=== PATIENT | female | born 1995 | race African-American/Black ===

== ENCOUNTER 2021-04-06 11:27 | Emergency (ER) | payer OTHER ==
[~2021-04-06] VITALS: Ht 177.8 cm; Wt 70.3 kg
[2021-04-06 13:35] VITALS: BP 142/63
--- NOTE | 2021-04-06 15:32 | EKG ---
[address] [address] ELECTROCARDIOGRAM REPORT Name: KRYSTAL MARRUFO Room #: REG ALEX [place]#: [id number] Admission: 04/06/21 Attend Phys: Discharge: Date of : [birth year] Report #: [id number] [facility] ED Test Date: 2021-04-06 Test Time: 11:35:09 Pat Name: KRYSTAL MARRUFO Department: Room: Gender: F Farm Equipment Operator: SUGAR : 1995 Requested By: Leslie Hung Order Number: [id number] MD: Lon Connor Measurements Intervals [place] Rate: 71 P: 42 MD: 140 QRS: 94 QRSD: 87 T: 22 QT: 363 QTc: 395 Interpretive Statements Sinus rhythm Left atrial enlargement Borderline right axis deviation No previous ECG available for comparison Electronically Signed On 04-06-2021 15:32:18 LINK KNITTING MACHINE OPERATOR by Lon oCnnor [email or web address] <ELECTRONICALLY SIGNED> By: Lon Connor MD, [facility] 04/06/21 1532 [id number] Lon Cononr MD, FACC /EPI
== END 2021-04-06 13:35 | disposition home or self-care (01) ==
LOC: ER 11:27
DX: U07.1 COVID-19 (principal); R07.89 Other chest pain; Z88.8 Allergy status to other drugs, medicaments and biological substances